=== PATIENT | male | born 1995 | race African-American/Black ===

== ENCOUNTER 2016-09-12 09:14 | Emergency (ER) | payer SELFPAY ==
--- NOTE | 2016-09-12 10:02 | ED Physician Documentation ---
Upper Respiratory Symptoms - HISTORIAN Historian: patient - HPI Stated Complaint: fever, body aches, sore throat, cough Chief Complaint: Fever Onset: days ago (3 days) Duration: constant Severity: moderate Associated Symptoms: fever, chills, sore throat, chest pain, productive cough ( yellow) Worsened by Deep Breath: Yes Further Comments: yes - ROS CONST/EYES: weakness, other (muscle aches) CVS/RESP: chest pain (chest wall) GI/: none MS/SKIN: joint pain, muscle aches. denies: rash - PAST HX Lung Disease: none, other (childhood asthma) PE Risk Factors: none Surgeries/Procedures: other (ORIF right ankle fracture) Immunizations: referred to PCP Allergies/Adverse Reactions: Allergies Allergy/AdvReac Type Severity Reaction Status Date / Time No Known Allergies Allergy Verified 09/12/16 09:38 Home Medications: Ambulatory Orders Medication Instructions Recorded Ondansetron HCl Rapdis [Zofran Odt] 4 mg PO Q8 PRN #5 tab 09/12/16 - SOCIAL HX Smoking History: less than 1 pack/day Alcohol Use: none Drug Use: marijuana - FAMILY HX Family History: no significant history - VITAL SIGNS Vital Signs: Vital Signs Temp Pulse Resp BP Pulse Ox 99.4 F 83 18 127/71 98 09/12/16 09:20 09/12/16 09:20 09/12/16 09:20 09/12/16 09:20 09/12/16 09:20 - REVIEWED ASSESSMENTS Nursing Assessment Reviewed: Yes Vitals Reviewed: Yes ED Results Lab/Radiology - Lab Results Lab Results: Lab Results 09/12/16 09/12/16 09/12/16 10:20 10:20 09:35 WBC 4.90 K/ul K/ul (4.00-12.00) RBC 5.37 M/ul H M/ul (3.90-5.20) Hgb 15.8 g/dL g/dL (12.0-18.0) Hct 46.2 % % (37.0-53.0) MCV 86.0 fl fl (80.0-100.0) MCH 29.5 pg pg (28.0-34.0) MCHC 34.3 g/dL g/dL (30.0-36.0) RDW 13.2 % % (11.3-14.3) Plt Count 158 K/mm3 K/mm3 (130-400) Neut % (Auto) 71.5 % % (39.0-79.0) Lymph % (Auto) 16.9 % % (16.0-50.0) [place] % (Auto) 7.6 % % (0.0-11.0) Eos % (Auto) 1.7 % % (0.0-6.8) Baso % (Auto) 0.3 (0.0-1.5) Neut # 3.5 # k/uL # k/uL (1.4-7.7) Lymph # 0.8 # k/uL # k/uL (0.6-4.0) [place] # 0.4 # k/uL # k/uL (0.0-0.9) Eos # 0.1 # k/uL # k/uL (0.0-0.6) Baso # 0.0 # k/uL # k/uL (0.0-0.5) Reactive Lymphs % 2.0 % % (0.0-5.0) Reactive Lymphs # 0.1 # k/uL # k/uL (0.0-0.8) Sodium 133 mmol/L L mmol/L (136-145) Potassium 3.4 mmol/L L mmol/L (3.5-5.0) Chloride 101 mmol/L mmol/L (98-110) Carbon Dioxide 32 mmol/L mmol/L (20-32) BUN 20 mg/dL mg/dL (10-26) Creatinine 1.2 mg/dL mg/dL (0.4-1.5) Estimated Creat Clear 103 Est GFR ( Amer) > 60 (60 - ) Est GFR (Non-Af Amer) > 60 (60 - ) Glucose 91 mg/dL mg/dL (70-99) Calcium 10.0 mg/dL mg/dL (8.5-10.5) Total Bilirubin 2.4 mg/dL H mg/dL (0.2-1.2) AST 44 U/L H U/L (0-41) ALT 27 U/L U/L (0-45) Alkaline Phosphatase 71 U/L U/L (46-116) Total Protein 7.9 g/dL g/dL (6.0-8.5) Albumin 4.7 g/dL g/dL (3.0-5.5) Influenza Type A Ag Positive H (NEGATIVE) Influenza Type B Ag Negative (NEGATIVE) Group A Strep Screen Negative (NEGATIVE) - Orders Orders: ED Orders Category Date Time Status Place Saline Lock/IV Now Care 09/12/16 10:10 Active CBC/PLATELET/DIFF Routine Lab 09/12/16 10:20 Completed CMP Routine Lab 09/12/16 10:20 Completed GRP A STREP SCREEN Stat Lab 09/12/16 09:35 Completed INFLUENZA A&B Stat Lab 09/12/16 09:35 Completed THROAT CULTURE Stat Lab 09/12/16 09:35 Received 0.9 % Sodium Chloride [Normal Saline] 1,000 ml Med 09/12/16 10:30 Ordered IV .Q1H Upper Respiratory Symptoms - EXAM General Appearance: alert, mild distress EENT: eyes nml inspection, ear nml, nose nml, pharyngeal erythema (mild). No: tonsillar exudate, tonsillar swelling Neck: normal inspection, supple. No: lymphadenopathy, stiff neck Respiratory: no resp. distress, breath sounds nml, speaks full sentences, chest wall tenderness (right lower rib area, tender to palpation, no bony abnl noted) Abdomen: no organomegaly, nml bowel sounds, no distention, tenderness (mild diffuse) CVS: reg rate & rhythm, heart sounds normal, equal pulses, no murmur Skin: color nml, no rash, warm,dry Extremities: non-tender Neuro/Psych: oriented x3, neuro intact, mood/affect nml Discharge Clincal Impression: Influenza A, Dehydration, Nausea & vomiting Prescriptions: Ondansetron HCl Rapdis [Zofran Odt] 4 mg PO Q8 PRN #5 tab PRN Reason: Nausea / Vomiting Additional Instructions: Drink a lot of fluids. Drink enough fluids to keep urine a light color. Watch for increasing breathing problems. If you have any other problems to call, see your primary care provider or return tot he ED. Do not take any aspirin. Home Medications: Ambulatory Orders Ondansetron HCl Rapdis [Zofran Odt] 4 mg PO Q8 PRN #5 tab 09/12/16 Condition: Stable Disposition: 01 HOME, SELF-CARE Decision to Admit: NO Date of Decison to Admit: 09/12/16 Decision Time: 10:56
[2016-09-12] MEDS ORDERED: 0.9 % SODIUM CHLORIDE 1,000 ML IV ONE (10:19)
[2016-09-12 10:23] LABS: BASOPHILS % 0.3 (0.0-1.5); EOSINOPHILS % 1.7 % (0.0-6.8); LYMPHOCYTES # 0.8 # k/uL (0.6-4.0); MEAN CORPUSCULAR HEMOGLOBIN 29.5 pg (28.0-34.0); MONOCYTES # 0.4 # k/uL (0.0-0.9); MONOCYTES % 7.6 % (0.0-11.0); NEUTROPHILS # 3.5 # k/uL (1.4-7.7)
[2016-09-12] MEDS: 0.9 % SODIUM CHLORIDE 1,000 ML IV SCH (10:23)
[2016-09-12 10:45] LABS: eGFR (African) > 60; eGFR (Non-African) > 60
[2016-09-12 11:23] VITALS: BP 135/57
== END 2016-09-12 10:56 | disposition home or self-care (01) ==
LOC: ED 09:14
DX: J11.1 Influenza due to unidentified influenza virus with other respiratory manifestations (principal); E86.0 Dehydration; R11.2 Nausea with vomiting, unspecified
CPT/HCPCS: 80053; 85025; 87070; 87400; 87880; J7030; 99283; S1016